=== PATIENT | female | born 1960 | race Caucasian/White ===

== ENCOUNTER 2024-10-06 08:43 | Outpatient (CLI) | payer BC ==
[2024-10-06] MEDS ORDERED: Iopamidol 300 61% 100 ML VIAL FS ONE (14:48)
== END 2024-10-06 08:44 | disposition home or self-care (01) ==
LOC: CSHCT 08:43
PROVIDERS: ATTEND Internal Medicine Gastroenterology
DX: D50.9 Iron deficiency anemia, unspecified (principal); K76.89 Other specified diseases of liver; N28.1 Cyst of kidney, acquired; K57.30 Diverticulosis of large intestine without perforation or abscess without bleeding
CPT/HCPCS: 36415; 74178; 82565